=== PATIENT | male | born 1960 | race Caucasian/White ===

== ENCOUNTER 2021-06-17 15:59 | Outpatient (CLI) | payer OTHER, SELFPAY ==
--- NOTE | ~2021-06-17 | XR_ITS ---
EXAMINATION: XR ankle LT min 3V, XR foot LT min 3V DATE: 06/17/2021 16:46 INDICATION: Left ankle fracture TECHNIQUE: 1. Anteroposterior, mortise and lateral view of the left ankle were obtained. 2. Dorsoplantar, oblique and lateral views of the left foot were obtained. COMPARISON: None. FINDINGS: Postoperative changes in the distal tibia and fibula including lateral plate and screw fixation jessica ing an old healed fracture at the distal left fibular diaphysis. Lucent tract extending across the me taphyseal region of the distal tibia which could be related to prior screw fixation or potentially a syndesmotic wire fixation. Alignment appears near-anatomic. Old fracture deformity versus chronic col lapsed osteonecrosis at the head of the fourth metatarsal. No acute fractures. Diffuse osteopenia. Po lyarticular osteoarthritis, moderate severity at the first tarsal metatarsal and first metatarsophala ngeal joints and mild at the left ankle and remaining joints of the left foot. Juxta articular erosio n with overhanging edges at the medial head of the first metatarsal suspicious for gout. Moderate-siz ed plantar calcaneal spur. Diffuse soft tissue edema about the left foot and ankle. IMPRESSION: 1. Postoperative changes at the distal left tibia and fibula as detailed above with old healed distal fibular fracture in essentially anatomic alignment. 2. Chronic fracture deformity versus chronic collapsed osteonecrosis at the head of the left fourth m etatarsal. 3. Erosion at the medial head of the first metatarsal suspicious for gout. 4. Mild to moderate polyarticular osteoarthritis throughout the left foot and ankle. Reviewed, dictated and finalized at location B. CCO GROWER IMPRESSION: 1. Postoperative changes at the distal left tibia and fibula as detailed above with old healed distal fibular fracture in essentially anatomic alignment. 2. Chronic fracture deformity versus chronic collapsed osteonecrosis at the hea d of the left fourth metatarsal. 3. Erosion at the medial head of the first metatarsal suspicious for gout. 4. Mild to moderate polyarticular osteoarthritis throughout the left foot and a nkle.
--- NOTE | ~2021-06-17 | XR_ITS ---
EXAMINATION: XR ankle RT min 3V, XR foot RT min 3V DATE: 06/17/2021 16:46 INDICATION: Right foot and ankle fracture TECHNIQUE: 1. Anteroposterior, mortise and lateral view of the right ankle were obtained. 2. Dorsoplantar, oblique and lateral views of the right foot were obtained. COMPARISON: None. FINDINGS: Alignment is normal. Diffuse osteopenia which decreases sensitivity for nondisplaced fracture. No fra ctures identified. Mild polyarticular osteoarthritis throughout the right foot and ankle. Achilles an d plantar calcaneal spurs. No ankle joint effusion. Diffuse soft tissue swelling throughout the right foot. IMPRESSION: 1. Mild polyarticular osteoarthritis throughout the right foot. No evident acute osseous abnormality although sensitivity for nondisplaced fractures decreased by diffuse osteopenia. Reviewed, dictated and finalized at location B. TIVE INVESTIGATOR IMPRESSION: 1. Mild polyarticular osteoarthritis throughout the right foot. No evident acut e osseous abnormality although sensitivity for nondisplaced fractures decreased by diffuse osteopenia.
== END 2021-06-17 16:00 | disposition home or self-care (01) ==
LOC: ANHIMG 16:02
PROVIDERS: PCP Family Medicine; Visit Provider Podiatrist Foot & Ankle Surgery
DX: M19.071 Primary osteoarthritis, right ankle and foot (principal); M19.072 Primary osteoarthritis, left ankle and foot
CPT/HCPCS: 73610; 73630

== ENCOUNTER 2024-12-27 17:41 | Outpatient (CLI) | payer OTHER, SELFPAY ==
--- NOTE | ~2024-12-27 | XR_ITS ---
HISTORY: T81.329A - Deep disruption or dehiscence COMPARISON: None TECHNIQUE: 2 views of the thoracic spine were performed FINDINGS: Posterior instrumentation is identified at each level of the visualized portion of the thoracic spine . Air within the soft tissues within the upper thoracic spine, superficial to the trapezius musculature . Thickening of the posterior layer of the thoracolumbar fascia is identified within the upper to mid t horacic spine measuring a maximal anterior to posterior dimension of 16 mm. IMPRESSION: Posterior instrumentation with additional findings of air within the soft tissues and thickening of t he posterior layer of the thoracolumbar fascia. Reviewed, dictated and finalized at location A. IMPRESSION: Posterior instrumentation with additional findings of air within the soft tissu es and thickening of the posterior layer of the thoracolumbar fascia.
--- NOTE | ~2024-12-27 | XR_ITS ---
HISTORY: T81.329A - Deep disruption or dehiscence of operation wou... COMPARISON: None. TECHNIQUE: 2 view lumbar spine. FINDINGS: Redemonstration of posterior fixation of the lower thoracic and lumbosacral spine. Fusion of the vertebrae within the lumbar spine is identified. Disc spacers are identified at the levels of L5/S1, L4/L5, L3/L4 and L2/L3. Surrounding soft tissues are unremarkable. Diffuse bony demineralization is present. IMPRESSION: Diffuse bony demineralization with extensive posterior fixation of the lower thoracic and lumbosacral spines with accompanying fusion. Reviewed, dictated and finalized at location A. IMPRESSION: Diffuse bony demineralization with extensive posterior fixation of the lower th oracic and lumbosacral spines with accompanying fusion.
--- OUTSIDE RECORDS SUMMARY | 2024-12-27 17:53 | XMS_ITS | Patient Health Record ---
Author Organization [facility] Address [address] [address] Care Team Providers Care Nascar Driver Name Role Phone PAOLA RODRIGUES Primary Care Provider MELISSA Cortez Unavailable [phone] Lay Keating MD Unavailable Unavailable Reason For Referral No Information Medications Medication SIG (Take, Route, Frequency, Duration) Notes Start Date End Date Status Methocarbamol 750 MG 1 tablet Orally kristan ry 8 hrs for 30 days Active CeleBREX 200 MG 1 capsule with food Orally Once a day Active Crestor 20 MG 1 tablet Orally Once a day Active Furosemide 40 MG 1 tablet Orally Once a day Active Levorphanol Tartrate 2 MG 1 tablet as ne eded Orally every 8 hrs Active Methocarbamol 750 MG 1 tablet Orally kristan ry 8 hrs for 30 day(s) 05/18/2019 Active Problems Problem Type SNOMED Code ICD Code Onset Dates Problem Status W/U Status Risk Notes Problem 06315614 Sacroiliitis (M46.1) Active confirmed Problem 116294975 Lumbar radiculopathy (M54.16) Active confirmed Problem 57466672 Post-laminectomy syndrome (M96.1) Active confirmed Problem 865149789 Postlaminectomy syndrome of lumbosacral region (M96.1) Active confirmed Problem 16376622 Meralgia paresthetica of left side (G57.12) Active confirmed Problem 140800246 Lumbar spondylos is (M47.816) Active confirmed Problem [id number] Meralgia paresthetica of right side (G57.11) Active confirmed Plan Of Treatment Pending Test Test Name Order Date X ray : Pelvis 05/01/2019 Insurance Providers Payer Name Payer Address Payer Phone Subscriber Number Group Number Insured Name Patient Relationship to Insured Coverage Start Date Coverage End Date [employer] [address] [place] [address] [id number] ALEXIA DAUGHERTY Self - patient is the insured Medical (General) History Surgical History Surgery Date(Month/Year)
--- OUTSIDE RECORDS SUMMARY | 2024-12-27 17:53 | XMS_ITS | Referral Summary ---
Author Organization [facility] [address] Address [address] [place] [address] Care Team Providers Care Cable Former Name Role Phone Neville Preciado MD Primary Care Provider Benjamin Starkey MD Unavailable [phone] Frederick Hollingsworth MD Unavailable [phone] Encounters Date Type Department Care Team Description 12/11/2024 8:32 AM CDT - 12/11/2024 9:40 AM CDT Emergency [facility] Emergency Department [facility] [place] [address] Gerardo Styles DO Wound dehiscence (Primary Dx) Discharge Disposition: Discharge to home or self care from Last 3 Months Allergies Active Allergy Reactions Criticality Noted Date Comments Methadone Hypotension,Other (S ee comments) High 07/01/2021 bp bottomed out. Required a blood transfusion Medications celecoxib (CeleBREX) 200 mg capsule take 1 capsule (200MG) by oral route 2 times every day as needed 0 1 Active Additional Information Patient not taking.Reported on 12/11/2024 furosemide (LASIX) 40 mg tablet take 1 tablet by oral route every day 0 0 6 Active Additional Information Patient not taking.Reported on 12/11/2024 omeprazole 20 mg tablet,delayed release (DR/EC) take 1 by Oral route once 0 0 6 Active Additional Information Patient not taking.Reported on 12/11/2024 metOLazone (ZAROXOLYN) 2.5 mg tablet take 1 tablet by oral route every other day 30 minutes before morning dose of lasix 0 0 7 Active Additional Information Patient not taking.Reported on 12/11/2024 cetirizine (ZyrTEC) 10 mg capsule 10 mg. 0 0 7 Active Additional Information Patient not taking.Reported on 12/11/2024 methocarbamol (ROBAXIN) 750 mg tablet TK 1 T PO TID PRN 0 8 Active glucosamine-cho ndroitin (GLUCOSAMINE 1500 COMPLEX) 500-400 mg capsule Take 1 capsule by mouth halftone operator before breakfast Active calcium carbonate (OS-EDUARDO) 1,500 mg (600 mg of elemental calcium) tablet Take 600 mg by mouth halftone operator before breakfast Active ibuprofen (ibuprofen) 200 mg tab/cap Take 4 tablet/capsule (800 mg total) by mouth every 6 hours as needed Active predniSONE (DELTASONE) 10 mg tablet 3 (three) times a day 0 Active multivitamin capsule Take 1 capsule by mouth halftone operator before breakfast Active potassium 99 mg tablet Take by mouth halftone operator before breakfast Active traMADol (ULTRAM) 50 mg tabletIndicatio ns:Pain Take 1 tablet (50 mg total) by mouth every 6 (six) hours as needed for pain Active oxyCODONE (ROXICODONE) 5 mg immediate release tabletIndicatio ns:Pain Take 1 tablet (5 mg total) by mouth every 4 (four) hours as needed for pain 20 tablet 0 Active Additional Information Patient not taking.Reported on 12/18/2019 lisinopriL (PRINIVIL,ZESTR IL) 10 mg tabletIndicatio ns:Hypertensive heart disease without CHF Take 1 tablet (10 mg total) by mouth daily 90 tablet 3 0 Active Additional Information Patient not taking.Reported on 12/11/2024 baclofen (LIORESAL) 10 mg tablet Take 1 tablet (10 mg total) by mouth 3 (three) times a day Active cefuroxime (CEFTIN) 500 mg tablet Take 1 tablet (500 mg total) by mouth every 12 (twelve) hours Active ferrous sulfate 325 mg (65 mg of elemental iron) tablet Take 1 tablet (325 mg total) by mouth daily 0 Active methenamine (HIPREX) 1 gram tablet Take 1 tablet (1,000 mg total) by mouth 2 (two) times a day 3 Active oxyBUTYnin (DITROPAN) 5 mg tablet Take 1 tablet (5 mg total) by mouth 2 (two) times a day 3 Active pregabalin (LYRICA) 300 mg capsule Take 1 capsule (300 mg total) by mouth 2 (two) times a day Active senna-docusate (PERICOLACE) 8.6-50 mg Take 1 tablet by mouth daily Active Mounjaro 10 mg/0.5 mL pen injector injection Inject 0.5 mL (10 mg total) under the skin once a week Inject weekly on Wednesday 5 Active torsemide (DEMADEX) 20 mg tablet Take 2 tablets (40 mg total) by mouth 2 (two) times a day Active potassium chloride ER 20 mEq CR tablet Take 1 tablet (20 mEq total) by mouth 2 (two) times a day Active Active Problems Problem Noted Date Diagnosed Date 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 Morbid obesity with BMI of 40.0-44.9, adult 10/10 Body mass index 40+ - severely obese 11/05/2016 Overview (12/04/2016): Body mass index (BMI) 40.0-44.9, adult At risk of disease 11/05/2016 Overview (12/04/2016): Risk factors for obstructive sleep apnea Hypertensive heart disease with congestive heart failure 07/31/2015 Overview (10/16/2016): Hypertensive heart disease with diastolic heart failure Coronary arteriosclerosis in [place] artery 07/31 Overview (10/16/2016): Coronary artery disease involving [place] coronary artery of [place] heart with angina pectoris Chest pain 07/31/2015 Overview (10/16/2016): Chest pain, unspecified type Dyslipidemia 07/31/2015 Overview (10/16/2016): Dyslipidemia Obstructive sleep apnea syndrome 07/31/2015 Overview (10/16/2016): DARRIN (obstructive sleep apnea) Alcohol abuse 07/31/2015 Overview (10/16/2016): ETOH abuse Morbid obesity 07/31/2015 Overview (10/16/2016): Morbid obesity with BMI of 45.0-49.9, adult Noncompliance with treatment 07/31/2015 Overview (10/16/2016): Noncompliance Hypertension 07/31/2015 Overview (10/16/2016): Uncontrolled hypertension Social History Tobacco Use Types Packs/Day Years Used Date Smoking Tobacco: Former Smokeless Tobacco: Never Tobacco Cessation:Counseling Given: No Alcohol Use Standard Drinks/Week Comments Yes 15 (1 standard drink = 0.6 oz pu re alcohol) Personal Safety Answer Date Recorded Have you ever been in or are you currently in a harmful physical or emotional relationship or is someone making you feel afraid or unsafe? 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 Gender Identity Not on file Sexual Orientation Not on file Last Filed Vital Signs Vital Sign Reading Time Taken Comments Blood Pressure 136/87 12/11/2024 9:15 AM CDT Pulse 66 12/11/2024 9:15 AM CDT Temperature 36.5 C (97.7 F) 12/11/2024 8:21 AM CDT Respiratory Rate 20 12/11/2024 9:15 AM CDT Oxygen Saturation 95% 12/11/2024 9:15 AM CDT Inhaled Oxygen Concentration - - Weight 152 kg (335 lb 1.6 oz) 12/11/2024 8:32 AM CDT Height 185.4 cm (6' 1) 12/11/2024 8:21 AM CDT Body Mass Index 44.21 12/11/2024 8:21 AM CDT Plan of Treatment Not on file Procedures Procedure Name Priority Date/Time Associated Diagnosis Comments ED LACERATION REPAIR Routine 12/11/2024 9:22 AM CDT from Last 3 Months Results * Laceration Repair (12/11/2024 9:22 AM CDT) Narrative Gerardo Styles DO - 12/11/2024 9:22 AM CDT Gerardo Styles DO 12/11/2024 9:25 AM Laceration Repair Date/Time: 12/11/2024 9:22 AM Performed by: Gerardo Styles DO Authorized by: Gerardo Styles DO Location: Trunk Trunk location: Lower back Length (cm): 6 Repair type: Simple Wound exploration: entire depth of wound probed and visualized Contaminated: no Area cleansed with: Saline Amount of cleaning: Standard Repair method: Steri-Strips Approximation: Close Vermilion border: well-aligned Dressing: Sterile dressing Patient tolerance of procedure: Tolerated well, no immediate complications Gerardo Styles DO IN CLINIC/BEDSIDE ORDERABLE S Final Result from Last 3 Months Insurance [employer] [facility] CHOICE PLUS Care Teams Cable Former Relationship Specialty Start Date End Date Neville Preciado MD PCP - General 06/16/17 Benjamin Starkey MD Referring Physician Surgery 06/30/19 Frederick Hollingsworth MD Surgeon Colon and Rectal Surgery 08/01/19
--- OUTSIDE RECORDS SUMMARY | 2024-12-27 17:53 | XMS_ITS | Clinical Summary ---
Author Organization [facility] Care Team Providers Care Bowl Attendant Name Role Phone Unavailable Primary Care Provider Unavailabl e Social History Tobacco Use Types Packs/Day Years Used Date Smoking Tobacco: Never Assessed Sex and Gender Information Value Date Recorded Sex Assigned at Not on file Legal Sex Male 4:52 PM PEGGER Gender Identity Not on file Sexual Orientation Not on file Plan of Treatment Health Maintenance Due Date Last Done Comments Hepatitis C Virus (HCV) Screening 1960 TdaP Immunization 1960 Colonoscopy 2005 Colorectal Cancer Screening 2005 Cologuard 2010 Immunochemical Fecal Occult Blood 2010 Pneumococcal Immunization (5 0+ years) (1 of 1 - PCV) 2010 Zoster Immunization (1 of 2) 2010 PSA Discussion 2015 Influenza Immunization (#1) 2024 04/20/2020 SARS-COV-2 Immunization ( - season) 2024 Respiratory Syncytial Virus (RSV) Immunization (Adult) (1 - 1-dose 75+ series) 2035 Hepatitis B Immunization Aged Out No longer eligible based on patient's age to complete this topic Meningococcal Immunization (ACWY) Aged Out No longer eligible based on patient's age to complete this topic Pneumococcal Immunization Combined Aged Out No longer eligible based on patient's age to complete this topic Rotavirus Immunization Aged Out No lo nger eligible based on patient's age to complete this topic
--- OUTSIDE RECORDS SUMMARY | 2024-12-27 17:53 | XMS_ITS | Clinical Summary ---
Author Organization [facility] [address] Address [address] [place] [address] Care Team Providers Care Diorama Model Maker Name Role Phone Neville Preciado MD Primary Care Provider Benjamin Starkey MD Unavailable [phone] Frederick Hollingsworth MD Unavailable [phone] Allergies Active Allergy Reactions Criticality Noted Date [...] mg capsule Take 1 capsule by mouth lead systems analyst before breakfast Active calcium carbonate (OS-EDUARDO) 1,500 mg (600 mg of elemental calcium) tablet Take 600 mg by mouth lead systems analyst before breakfast Active ibuprofen (ibuprofen) 200 mg tab/cap Take 4 tablet/capsule (800 mg total) by mouth every 6 hours as needed Active predniSONE (DELTASONE) 10 mg tablet 3 (three) times a day 0 Active multivitamin capsule Take 1 capsule by mouth lead systems analyst before breakfast Active potassium 99 mg tablet Take by mouth lead systems analyst before breakfast Active traMADol (ULTRAM) 50 mg [...] with diastolic heart failure Coronary arteriosclerosis in [place] artery 07/31 Overview (10/16/2016): Coronary artery disease involving [place] coronary artery of [place] heart with angina pectoris Chest pain 07/31/2015 Overview (10/16/2016): Chest pain, unspecified type Dyslipidemia 07/31/2015 Overview (10/16/2016): Dyslipidemia Obstructive sleep apnea syndrome 07/31/2015 Overview (10/16/2016): DARRIN (obstructive sleep apnea) Alcohol abuse 07/31/2015 Overview (10/16/2016): ETOH abuse Morbid obesity 07/31/2015 Overview (10/16/2016): Morbid obesity with BMI of 45.0-49.9, adult Noncompliance with treatment 07/31/2015 Overview (10/16/2016): Noncompliance Hypertension 07/31/2015 Overview (10/16/2016): Uncontrolled hypertension Encounters Date Type Department Care Team Description 12/11/2024 8:32 AM CDT - 12/11/2024 9:40 AM CDT Emergency [facility] Emergency Department [address] [place] [id number] Gerardo Styles DO Wound dehiscence (Primary Dx) Discharge Disposition: Discharge to home or self care from Last 3 Months Surgical History Surgery Date Site/Laterality Comments POSTERIOR SPINAL FUSION 04/13/2017 Bilateral SPINE HARDWARE REMOVAL 09/28/2017 Bilateral CERVICAL DISCECTOMY 03/22/2008 POSTERIOR LAMINECTOMY / DECOMPRESSION LUMBAR SPINE 06/13/2008 ANAL FISTULOTOMY 07/21/2019 Exam under anesthesia, fistulotomy Medical History Medical History Date Comments Hypertension Hypertension Hx Other Medical Arrhythmias Adiposity Obesity Neuropathy Arthritis Sleep apnea Depression CHF (congestive heart failure) (HCC) GERD (gastroesophageal reflux disease) Back pain Family History Medical History Relation Name Comments Hypertension Brother 1 Family history of hypertension - (Added by TW Conv) Arthritis Brother 2 Family history of arthritis - (Added by TW Conv) Heart disease Brother 3 Family history of cardiac disorder - (Added by TW Conv) Stroke Brother 4 Family history of cerebrovascular accident - (Added by TW Conv) Heart disease Daughter Family history of cardiac disorder - (Added by TW Conv) Arthritis Father Family history of arthritis - (Added by TW Conv) Heart disease Father Family history of cardiac disorder - (Added by TW Conv) Hypertension Father Family history of hypertension - (Added by TW Conv) Relation Name Status Comments Brother 1 Brother 2 Brother 3 Brother 4 Daughter Father Social History Tobacco Use Types Packs/Day Years [...] on file 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 Gender Identity Not on file Sexual Orientation Not on file Obstetrics History Last Filed Vital Signs Vital Sign Reading [...] 12/11/2024 8:21 AM CDT Plan of Treatment Health Maintenance Due Date Last Done Comments Colon Cancer Screening-Colonoscopy 1960 Depression Screening 1960 Hepatitis C Screening 1960 Prostate Cancer Screening-PSA 1960 DTaP/Tdap/Td Vaccine (1 - Tdap) 1971 Hepatitis B Screening 1978 Regular Well Visit/Exam 18-64 1978 Pneumococcal vaccine <65 (1 of 2 - PCV) 1979 Zoster Vaccine (1 of 2) 1979 Influenza Vaccine (Season Ended) 2025 04/03/2022, 04/06/2021, 04/20/2020, Additional history exists Procedures Procedure Name Priority Date/Time Associated Diagnosis [...] Final Result from Last 3 Months Insurance [facility] [address] [id number] Care Teams Diorama Model Maker Relationship Specialty Start Date End Date Neville Preciado MD PCP - General 06/16/17 Benjamin Starkey MD Referring Physician Surgery 06/30/19 Frederick Hollingsworth MD Surgeon Colon and Rectal Surgery 08/01/19
--- OUTSIDE RECORDS SUMMARY | 2024-12-27 17:53 | XMS_ITS | Continuity of Care Document ---
Author Organization [facility] Address [address] [facility] [address] [place] [address] Phone Care Team Providers Care Bird Raiser Name Role Phone Noel Umanzor PT Unavailable Unavailable Procedures Procedure Date Therapeutic Exercise Manual Therapy Hot or Cold Pack Electrical Stimulation Therapeutic Exercise Manual Therapy Hot or Cold Pack Electrical Stimulation Therapeutic Exercise Neuromuscular Re-Ed Manual Therapy Hot or Cold Pack Electrical Stimulation Therapeutic Exercise Neuromuscular Re-Ed Manual Therapy Hot or Cold Pack Electrical Stimulation Therapeutic Exercise Neuromuscular Re-Ed Manual Therapy Hot or Cold Pack Therapeutic Exercise Neuromuscular Re-Ed Manual Therapy Hot or Cold Pack Therapeutic Exercise Neuromuscular Re-Ed Manual Therapy Hot or Cold Pack Electrical Stimulation PT Evaluation Moderate Complexity Therapeutic Exercise Therapeutic Exercise Therapeutic Activities Neuromuscular Re-Ed Hot or Cold Pack Therapeutic Exercise Therapeutic Activities Neuromuscular Re-Ed Hot or Cold Pack Electrical Stimulation Therapeutic Exercise Therapeutic Activities Neuromuscular Re-Ed Hot or Cold Pack Electrical Stimulation Therapeutic Exercise Therapeutic Activities Neuromuscular Re-Ed Hot or Cold Pack Therapeutic Exercise Neuromuscular Re-Ed Hot or Cold Pack Electrical Stimulation Therapeutic Exercise Neuromuscular Re-Ed Hot or Cold Pack PT Re-evaluation Therapeutic Exercise Neuromuscular Re-Ed Hot or Cold Pack Therapeutic Exercise Neuromuscular Re-Ed Hot or Cold Pack Therapeutic Exercise Neuromuscular Re-Ed Hot or Cold Pack Therapeutic Exercise Neuromuscular Re-Ed Hot or Cold Pack Ultrasound Therapeutic Exercise Neuromuscular Re-Ed Hot or Cold Pack Ultrasound Therapeutic Exercise Neuromuscular Re-Ed Hot or Cold Pack Ultrasound Therapeutic Exercise Neuromuscular Re-Ed Hot or Cold Pack Ultrasound Therapeutic Exercise Neuromuscular Re-Ed Hot or Cold Pack Ultrasound Therapeutic Exercise Neuromuscular Re-Ed Hot or Cold Pack Ultrasound Therapeutic Exercise Neuromuscular Re-Ed Hot or Cold Pack Ultrasound Therapeutic Exercise Neuromuscular Re-Ed Hot or Cold Pack Electrical Stimulation Ultrasound PT Evaluation Moderate Complexity Therapeutic Exercise PT Re-evaluation Therapeutic Exercise Therapeutic Activities Neuromuscular Re-Ed Manual Therapy Therapeutic Exercise Therapeutic Activities Neuromuscular Re-Ed Manual Therapy Therapeutic Exercise Therapeutic Activities Neuromuscular Re-Ed Manual Therapy Therapeutic Exercise Therapeutic Activities Neuromuscular Re-Ed Manual Therapy Therapeutic Exercise Therapeutic Activities Neuromuscular Re-Ed Manual Therapy PT Evaluation Moderate Complexity Therapeutic Exercise Manual Therapy Advance Directives Directive Yes / No Effective Date File Name No Information Encounters Encounter Description Practice Location Reason(s) For Visit Diagnoses Date Provider Providers Copied on Encounter [facility] [address], [id number], tel:[phone] [place] Unspecified abnormalities of gait and mobilityLumbago with sciatica, right sideOther specified dorsopathies, cervical regionOth symptoms and signs involving the musculoskeletal systemOther specified disorders of muscleOth symptoms and signs involving the dgstv sys and abdomen Erna Cohen. . Referring Provider: Armand Arnett, [address], [address]. tel:[phone] [facility], [place], [place], [id number], tel:[phone] [place] Lumbago with sciatica, right sideOther specified dorsopathies, cervical regionOth symptoms and signs involving the musculoskeletal systemOther specified disorders of muscleOth symptoms and signs involving the dgstv sys and abdomenUnspecifi ed abnormalities of gait and mobility 8 Erna Cohen. . Referring Provider: Armand Arnett, [address], [address]. tel:[phone] [facility] [facility] [address], [place], [place], [id number], [place] tel:[phone] [place] Other specified dorsopathies, cervical regionOth symptoms and signs involving the musculoskeletal systemOther specified disorders of muscleOth symptoms and signs involving the dgstv sys and abdomenUnspecifi ed abnormalities of gait and mobilityLumbago with sciatica, right side November- Dellamano Noel. . Referring Provider: Armand Arnett, [address] [facility] [address], [place], [address]. tel:[phone] [facility] [facility] [address], [place], [place], [id number], [place] tel:[phone] [place] Oth symptoms and signs involving the musculoskeletal systemOther specified disorders of muscleOth symptoms and signs involving the dgstv sys and abdomenUnspecifi ed abnormalities of gait and mobilityLumbago with sciatica, right sideOther specified dorsopathies, cervical region November- Dellamano Noel. . Referring Provider: Armand Arnett, [address] [facility] [address], [place], [address]. tel:[phone] [facility] [facility] [address], [place], [place], [address], [place] tel:[phone] [place] Other specified disorders of muscleOth symptoms and signs involving the dgstv sys and abdomenUnspecifi ed abnormalities of gait and mobilityLumbago with sciatica, right sideOther specified dorsopathies, cervical regionOth symptoms and signs involving the musculoskeletal system 8 Dellamano Noel. . Referring Provider: Armand Arnett, [address] [facility] [address], [place], [address]. tel:[phone] [facility] [facility] [address], [place], [place], [id number], [place] tel:[phone] [place] Ot symptoms and signs involving the dgstv sys and abdomenUnspecifi ed abnormalities of gait and mobilityLumbago with sciatica, right sideOther specified dorsopathies, cervical regionOth symptoms and signs involving the musculoskeletal systemOther specified disorders of muscle May-0 7-201 8 Dellamano Noel. . Referring Provider: Armand Arnett [address] [place] [address] [address], [place], [address]. tel:[phone] [facility], [address] [address], [place], [place], [address], tel:[phone] [place] Unspecified abnormalities of gait and mobilityLumbago with sciatica, right sideOther specified dorsopathies, cervical regionOth symptoms and signs involving the musculoskeletal systemOther specified disorders of muscleOth symptoms and signs involving the dgstv sys and abdomen May-0 4- 8 Dellamano Noel. . Referring Provider: Armand Arnett [address] [place] [address] [address], [place], [address]. tel:[phone] [facility], [address] [address], [place], [place], [address], tel:[phone] [place] Lumbago with sciatica, right sideOther specified dorsopathies, cervical regionOth symptoms and signs involving the musculoskeletal systemOther specified disorders of muscleOth symptoms and signs involving the dgstv sys and abdomenUnspecifi ed abnormalities of gait and mobility Apr-3 0-201 8 Dellamano Noel. . Referring Provider: Armand Arnett [address] [place] [address] [address], [place], [address]. tel:[phone] [facility] [address], [place], [place], [address], tel:[phone] [place] No Information Nov-3 0-201 7 Dellamano Noel. . Referring Provider: Armand Arnett [facility] [facility] [address], [place], [address]. tel:[phone] [facility], [address] [facility] [address], [place], [place], [address], tel:[phone] [place] No Information Nov-2 8-201 7 Dellamano Noel. . Referring Provider: Armand Arnett [address] [facility] [address], [place], [address]. tel:[phone] [facility], [address], [place], [place], [address], [place] tel:[phone] [place] No Information Nov-2 7-201 7 Dellamano Noel. . Referring Provider: Armand Arnett, [address] [facility] [address], [place], [address]. tel:[phone] [facility], [address], [place], [place], [address], [place] tel:[phone] [place] No Information Nov-2 4-201 7 Dellamano Noel. . Referring Provider: Armand Arnett, [facility] [facility] [address], [place], [address]. tel:[phone] [facility], [address] [facility] [address], [place], [place], [address], [place] tel:[phone] [place] No Information Nov-2 2-201 7 Dellamano Noel. . Referring Provider: Armand Arnett, [facility] [facility] [address], [place], [address]. tel:[phone] [facility], [address] [facility], [place], [place], [address], [place] tel:[phone] [place] No Information Nov-2 0-201 7 Dellamano Noel. . Referring Provider: Armand Arnett, [address] [facility] [address], [place], [address]. tel:[phone] [facility], [address], [place], [place], [address], [place] tel:[phone] [place] No Information Nov-1 3-201 7 Dellamano Noel. . Referring Provider: Armand Arnett, [address] [facility] [address], [place], [address]. tel:[phone] [facility], [address] [facility] [address], [place], [place], [address], [place] tel:[phone] [place] No Information Nov-1 0-201 7 Keith Payton. . Referring Provider: Armand Arnett [facility] [facility] [address], [place], [address]. tel:[phone] [facility], [address] [place] [address] [address], [place], [place], [address], [place] tel:[phone] [place] No Information Nov-0 8-201 7 Dellamano Noel. . Referring Provider: Armand Arnett [facility] [facility] [address], [place], [address]. tel:[phone] [facility] [address] [place] [address] [address], [place], [place], [id number], [place] tel:[phone] [place] No Information Nov-0 6-201 7 Dellamano Noel. . Referring Provider: Armand Arnett [address] [place] [address] [address], [place], [address]. tel:[phone] [facility], [address] [place] [address] [address], [place], [place], [id number], [place] tel:[phone] [place] No Information Nov-0 2-201 7 Dellamano Noel. . Referring Provider: Armand Arnett [address] [place] [address] [address], [place], [address]. tel:[phone] [facility] [address] [place] [address], [place], [place], [id number], [place] tel:[phone] [place] No Information Oct-3 0-201 7 Dellamano Noel. . Referring Provider: Armand Arnett [facility] [facility] [address], [place], [address]. tel:[phone] [facility] [address] [facility] [address], [place], [place], [address], [place] tel:[phone] [place] No Information Oct-2 7-201 7 Dellamano Noel. . Referring Provider: Armand Arnett [facility] [facility] [address], [place], [address]. tel:[phone] [facility], [address], [place], [place], [address], [place] tel:[phone] [place] No Information Apr- 5-201 7 Dellamano Noel. . Referring Provider: Armand Arnett, [facility] [facility] [address], [place], [address]. tel:[phone] [facility], [address] [facility] [address], [place], [place], [address], [place] tel:[phone] [place] No Information Apr- 3-201 7 Dellamano Noel. . Referring Provider: Armand Arnett, [facility] [facility] [address], [place], [address]. tel:[phone] [facility], [address] [facility] [address], [place], [address], [place] tel:[phone] [place] No Information Apr- 0-201 7 Dellamano Noel. . Referring Provider: Armand Arnett [facility] [facility] [address], [place], [address]. tel:[phone] [facility], [address] [facility] [address], [place], [address], [place] tel:[phone] [place] No Information 8201 7 Dellamano Noel. . Referring Provider: Armand Arnett [facility] [facility] [address], [place], [address]. tel:[phone] [facility], [address] [facility] [address], [place], [place], [address], [place] tel:[phone] [place] Arthrodesis status 7-201 7 Dellamano Noel. . Referring Provider: Armand Arnett [facility] [facility] [address], [place], [address]. tel:[phone] [facility], [address] [facility] [address], [place], [address], [place] tel:[phone] [place] No Information Sep-1 3 7 Dellamano Noel. . Referring Provider: Armand Arnett [facility] [facility] [address], [place], [address]. tel:[phone] [facility], [address] [facility] [address], [place], [place], [address], tel:[phone] [place] No Information Sep-1 1201 7 Dellamano Noel. . Referring Provider: Armand Arnett, [facility] [facility] [address], [place], [address]. tel:[phone] [facility] [address] [facility] [address], [place], [place], [address], [place] tel:[phone] [place] No Information Sep-0 7 Dellamano Noel. . Referring Provider: Armand Arnett [address] [place] [address] [address], [place], [address]. tel:[phone] [facility], [address] [address], [place], [place], [address], [place] tel:[phone] [place] No Information Sep-0 7 Dellamano Noel. . Referring Provider: Armand Arnett [address] [place] [address] [address], [place], [address]. tel:[phone] [facility] [address] [address], [place], [place], [address], tel:[phone] [place] No Information Feb-3 0-201 7 Dellamano Noel. . Referring Provider: Armand Arnett [facility] [facility] [address], [place], [address]. tel:[phone] [facility] [address] [facility] [address], [place], [place], [address], [place] tel:[phone] [place] Stiffness of unspecified joint, not elsewhere classifiedOther specified disorders of muscleMuscle weakness (generalized)Spo ndylolisthesis, lumbar regionSpinal stenosis, lumbar region Aug-2 8-201 7 Dellamano Noel. . Referring Provider: Armand Arnett, [address] [facility] [address], [place], [address]. tel:[phone] Family History Family Member Type Diagnosis Age At Onset No Information Payers Payer name Insurance type Covered alliance party ID Authoriza timanuel(s) [facility] [id number] Social History Type Description Quantity Date Captured Comments Sex Male Smoking Status No Information Chief Complaint And Reason For Visit No Information Reason For Referral Reason For Referral No Information History Of Present Illness Encounter Date Complaint History Of Prese nt Illness No Information Functional Status Date Functional Assessmen t No Information Instructions Date Instruction Additional Infor mation No Information Assessments Type Assessment Date No Information Patient Care Teams Name Effective Dates (start - stop) Status Members No Information
--- OUTSIDE RECORDS SUMMARY | 2024-12-27 17:53 | XMS_ITS | Clinical Summary ---
Author Organization [email or web address] Address [address] [place] [address] Care Team Providers Care Health Promotion Manager Name Role Phone Neville Preciado MD Primary Care Provider [phone] Source Comments [email or web address],non-owned Affiliates and Associated Physician Practices is amultiple site organization consisting of ambulatory clinics and hospital sitesin [place], [place], [place] and [place]. This disclosure is being madepursuant to the Care Everywhere program and may not contain all information available regarding this patient. Last updated 18.[email or web address] Allergies No known active allergies Medications * Be aware that medications may not be up to date on this document. Alwaysverify current medications with the patient. LISINOPRIL PO Active FUROSEMIDE PO Take 10 mg by mouth Active metOLazone (ZAROXOLYN) 2.5 MG tablet Take 2.5 mg by mouth once daily Active celecoxib (CELEBREX) 100 MG capsule Take 100 mg by mouth 2 times daily Active AMLODIPINE BESYLATE PO Active albuterol HFA (PROAIR HFA) 108 (90 BASE) MCG/ACT inhaler Inhale 2 Puffs by mouth every 4 hours as needed for Shortness of Breath, Wheezing or Cough 1 Inhaler 1 6 Active Active Problems Problem Noted Date Diagnosed Date Hypertension 03/14/2016 Right low back pain 03/14/2016 Edema of both legs 03/14/2016 History of back surgery 03/14/2016 Social History Tobacco Use Types Packs/Day Years Used Date Smoking Tobacco: Former Alcohol Use Standard Drinks/Week Comments Yes 0 (1 standard drink = 0.6 oz pur e alcohol) Sex and Gender Information Value Date Recorded Sex Assigned at Not on file 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 Gender Identity Not on file Sexual Orientation Not on file Last Filed Vital Signs Vital Sign Reading Time Taken Comments Blood Pressure 130/72 03/14/2016 10:34 AM CDT Pulse 84 03/14/2016 10:34 AM CDT Temperature 36.6 C (97.9 F) 03/14/2016 10:34 AM CDT Respiratory Rate - - Oxygen Saturation - - Inhaled Oxygen Concentration - - Weight 149.7 kg (330 lb) 03/14/2016 10:34 AM CDT Height 185.4 cm (6' 1) 03/14/2016 10:34 AM CDT Body Mass Index 43.54 03/14/2016 10:34 AM CDT Plan of Treatment Health Maintenance Due Date Last Done Comments COLOGUARD (AGES 45-75) - COL ON CA SCREENING 1960 COLON MONITORING 1960 COLONOSCOPY - COLON CA SCREENING 1960 CT COLONOGRAPHY - COLON CA SCREENING 1960 Colorectal Cancer Screening 1960 FIT - COLON CA SCREENING 1960 FLEX SIG - COLON CA SCREENING 1960 LIPID TESTING 1960 HIV SCREENING 1975 HEPATITIS C SCREENING 08/09/1978 DTAP/TDAP/TD VACCINES (1 - Tdap) 1979 PNEUMOCOCCAL VACCINE 50+ (1 of 1 - PCV) 2010 ZOSTER VACCINE (1 of 2) 2010 Respiratory Syncytial Virus (RSV) Vaccine Pt: or over 60 yrs (1 - Risk 60-74 years 1-dose series) 2020 COVID-19 VACCINE (1 - 2023-2 5 season) 2024 DEPRESSION SCREENING 07/12/2024 INFLUENZA VACCINE (Season Ended) 2025 HEPATITIS B VACCINE Aged Out No longe r eligible based on patient's age to complete this topic HIB VACCINE Aged Out No longer eligi ble based on patient's age to complete this topic HPV VACCINE Aged Out No longer eligi ble based on patient's age to complete this topic MENINGOCOCCAL (Group B) VACC INE SHARED DECISION-MAKING Aged Out No longer eligibl e based on patient's age to complete this topic MENINGOCOCCAL GROUPS A/C/Y/W VACCINE Aged Out No longer eligible b ased on patient's age to complete this topic Insurance [facility] Care Teams Health Promotion Manager Relationship Specialty Start Date End Date Neville Preciado MD [address] [place] [address] PCP - General Family Medicine 03/14/16
--- OUTSIDE RECORDS SUMMARY | 2024-12-27 17:53 | XMS_ITS | Patient Health Record ---
Author Organization 1 OF [facility] Address [address] [address] [place] [address] Care Team Providers Care Solutions Architect Name Role Phone Ozzy MENDEZ, Neville Primary Care Provider Tiffanie Wolf Unavailable [phone] Allergies No Known Allergies Reason For Referral No Information Medications Medication SIG (Take, Route, Frequency, Duration) Notes Start Date End Date Status Cyclobenzaprine HCl Active Potassium Chloride ER Active Midodrine HCl Active Docusate Sodium Acti ve Methenamine Hippurate Active Ceftin Active Baclofen Active Torsemide Active Cefuroxime Axetil Ac tive Lyrica Active traMADol HCl Active Allopurinol Active Stimulant Laxative A ctive Nitrofurantoin Monohyd Macro Active Pregabalin Active oxyCODONE HCl Active Torsemide Active Social History Tobacco Use: Social History Observation Description Date Details (start date - stop date) Former Smoker NA - NA Tobacco Use/Smoking Question Answer Notes Are you a former smoker How long has it been since you last smoked? > 10 years Problems Problem Type SNOMED Code ICD Code Onset Dates Problem Status W/U Status Risk Notes Problem 826577923 Hammertoe of right foot (M20.41) Active confirmed Problem 912863483 Hammertoe of left foot (M20.42) Active confirmed Problem 233982943 Neuropathy of both feet (G57.93) Active confirmed Problem [id number] Paralysis of lower extremity (G83.10) Active confirmed Plan Of Treatment No Information Insurance Providers Payer Name Payer Address Payer Phone Subscriber Number Group Number Insured Name Patient Relationship to Insured Coverage Start Date Coverage End Date [employer] [address] [place], [place] [phone] [id number] Jaylon Joshi Self - patient is the insured Medical (General) History Medical History History ICD Code Anemia Arthritis Depression Neuropathy of feet Gout Surgical History Surgery Date(Month/Year) Spiral Break in LT Ankle
== END 2024-12-27 17:42 | disposition home or self-care (01) ==
PROVIDERS: PCP Family Medicine; Visit Provider Nurse Practitioner Adult Health
DX: T81.329A Deep disruption or dehiscence of operation wound, unspecified, initial encounter (principal)
CPT/HCPCS: 72070; 72100

== ENCOUNTER 2025-01-18 13:28 | Outpatient (CLI) | payer OTHER, SELFPAY ==
--- NOTE | ~2025-01-18 | MR_ITS ---
MRI of the thoracic spine Clinical History: Postoperative dehiscence Technique: Axial T2-weighted and gradient images, and sagittal T1-weighted, T2-weighted, and STIR fito ges were acquired. Findings: There is posterior fusion throughout the entire thoracic spine with bilateral rods and hidalgo spedicular screws present. There is extensive associated susceptibility artifact. No definite fractur e or dislocation seen. No definite bone marrow signal abnormality seen. Evaluation the spinal canal and neural foramen is limited due to extensive susceptibility artifact. N o definite canal stenosis identified. Paravertebral soft tissues are unremarkable within the limitations of the exam. Impression: Extensive posterior fusion of the entire thoracic spine with extensive associated susceptibility ronn fact. No other significant findings identified, but exam is limited due to the extensive postoperative ronn fact present. Reviewed, dictated and finalized at location . Impression: Extensive posterior fusion of the entire thoracic spine with extensive associat ed susceptibility artifact. No other significant findings identified, but exam is limited due to the extens vera postoperative artifact present.
--- NOTE | ~2025-01-18 | MR_ITS ---
MRI of the lumbar spine Clinical History: Surgical dehiscence Technique: Axial T2-weighted images, and sagittal T1-weighted, T2-weighted, and T2 fat-sat images wer e acquired. Findings: There is extensive posterior fusion hardware extending throughout the visualized lower thor acic spine through the entire lumbar spine to the S1 level. There are interbody fusion cages at the L 2-L3, L3-L4, L4-L5, and L5-S1 disc spaces. There is extensive susceptibility artifact related to the extensive hardware. No acute fracture or subluxation evident. No definite bone marrow signal abnormal ity identified. Evaluation of the spinal canal is markedly limited due to extensive susceptibility artifact. Evaluati on of the neural foramina is also limited. There is a 5.3 x 3.6 x 9.5 cm presumed postoperative seroma seroma in the posterior paravertebral sof t tissues from the L2-L5 levels. Impression: Extensive spinal fusion changes, as detailed above. Very limited evaluation of the spinal canal and neural foramina due to extensive susceptibility artif act. 5.3 x 3.6 x 9.5 cm postoperative seroma in the posterior paravertebral soft tissues, as detailed abov e. Reviewed, dictated and finalized at location M. Impression: Extensive spinal fusion changes, as detailed above. Very limited evaluation of the spinal canal and neural foramina due to extensiv e susceptibility artifact. 5.3 x 3.6 x 9.5 cm postoperative seroma in the posterior paravertebral soft tis sues, as detailed above.
== END 2025-01-18 13:29 | disposition home or self-care (01) ==
LOC: MICIMG 13:29
PROVIDERS: PCP Family Medicine; Visit Provider Nurse Practitioner Adult Health
DX: T81.329A Deep disruption or dehiscence of operation wound, unspecified, initial encounter (principal); Z98.1 Arthrodesis status
CPT/HCPCS: 72146; 72148